=== PATIENT | female | born 2000 | race Two or more races ===

== ENCOUNTER → 2022-07-26 | Emergency (ER) | payer OTHER ==
[~2022-07-26] VITALS: Ht 167.6 cm; Wt 81.6 kg
== END | disposition home or self-care (01) ==
LOC: ER 01:36
DX: S01.122A Laceration with foreign body of left eyelid and periocular area, initial encounter (principal); W18.39XA Other fall on same level, initial encounter; Y93.89 Activity, other specified; Y92.018 Other place in single-family (private) house as the place of occurrence of the external cause; Z88.6 Allergy status to analgesic agent; Z88.0 Allergy status to penicillin

== ENCOUNTER 2022-08-02 11:54 | Emergency (ER) | payer OTHER ==
[~2022-08-02] VITALS: Ht 162.6 cm; Wt 72.6 kg
== END 2022-08-02 14:47 | disposition home or self-care (01) ==
LOC: ER 11:54
DX: Z48.02 Encounter for removal of sutures (principal); Z88.6 Allergy status to analgesic agent; Z88.0 Allergy status to penicillin